=== PATIENT | male | born 1995 | race Caucasian/White ===

== ENCOUNTER 2020-04-02 18:12 | Emergency (ER) | payer SELFPAY ==
[~2020-04-02 18:12] MED LIST: Iopamidol-370 76% 500 ML 1 ML ONE
[2020-04-02] MEDS ORDERED: Morphine 4 MG/ML VIAL ONE (19:12)
[2020-04-02] MEDS ORDERED: Ondansetron PF 4 MG/2 ML Vial ONE (19:12)
--- NOTE | 2020-04-02 19:22 | ULT ---
EXAM: US Testicular W Doppler PROVIDED CLINICAL HISTORY: Questionable bilateral inguinal hernias. History of testicular injury. COMPARISON: Testicular ultrasound obtained from [facility] on 04/02/2020 at 1419 hours. FINDINGS: The testicles demonstrate a normal and symmetric appearance bilaterally without evidence of a testicu lar mass. Doppler evaluation of each testicle with spectral analysis demonstrates arterial flow in each testicle. There is a small subcentimeter anechoic structure seen within the right epididymis likely due to smal l epididymal cyst. The left epididymis demonstrates a normal sonographic appearance. There is heterogeneous material seen adjacent to the right testicle which does demonstrate increased vascular flow on color flow evaluation. This heterogeneous material does not demonstrate peristalsis to suggest a bowel containing hernia. However, this could be related to herniation of mes enteric fat into the right scrotum. Similar finding was present on the prior exam. There is no evidence of a hydrocele. IMPRESSION: 1. Heterogeneous material seen in the right aspect of the scrotum adjacent to the right testicle and epididymis. This does extend into the visualized right inguinal canal. While there is no peristalsis to suggest that this represents a bowel containing hernia, this could be related to herni ation of mesentery and fat into the right aspect of the scrotum. A follow-up CT pelvis is suggested for further evaluation. 2. Normal appearing bilateral testicles with arterial flow demonstrated in each testicle. 3. Small right epididymal cyst.
--- NOTE | 2020-04-02 20:22 | CT ---
CT ABDOMEN AND PELVIS WITH IV CONTRAST 04/02/2020 CLINICAL INFORMATION: Right testicular pain for 5 days which is progressively worsening. COMPARISON: Scrotal ultrasound obtained on today's date. Technique: Multiple contiguous axial CT images are obtained through the abdomen and pelvis with IV contrast. Cor onal reformatted images are provided. FINDINGS: Lower Chest: Minimal linear scarring versus atelectasis is present in the right middle lobe. Lung bas es are otherwise clear. Vessels: Abdominal aorta is normal in caliber. Abdomen: Portal vein:Patent Gallbladder: Within normal limits for CT imaging. Liver: Mildly enlarged in craniocaudal dimensions measuring 18.6 cm. Spleen: within normal limits. Pancreas: within normal limits. Adrenals: within normal limits. Kidneys: within normal limits. Bowel: Normal caliber. Appendix: The appendix is visualized and normal in caliber. Peritoneum: No ascites or free air; no fluid collection. Mesentery and Retroperitoneum: No enlarged mesenteric or retroperitoneal lymph nodes. Abdominal Wall: within normal limits. Pelvis: Reproductive Organs: There is mild asymmetric enlargement of the right seminal vesicle with asymmetri c prominence of the spermatic cord. There is mild thickening along the spermatic cord with enhancement. Enhancement extends into the right inguinal canal and subsequently into the right aspect of the scrotum. Findings may be related to vasitis. Minimal inflammatory stranding is seen adjacent to the more proximal vas deferens and seminal vesicle. No bowel is seen extending into the r ight inguinal canal. Recent testicular ultrasound demonstrated normal-appearing bilateral testicles arterial flow present in each testicle. Pelvis within normal limits. Bladder: within normal limits. Bones: within normal limits. IMPRESSION: Evidence of inflammatory process involving the right seminal vesicle and right spermatic cord with fi ndings of thickening of the spermatic cord extending through the region of the inguinal canal with enhancement and prominent enhancement extends into the scrotum adjacent to the right testicle. Findin gs are likely attributable to vasitis.
[2020-04-02] MEDS ORDERED: Azithromycin 250 MG TAB ONE (20:44)
[2020-04-02] MEDS ORDERED: cefTRIAXone\\ROCEPHIN 1 GM VIAL ONE (20:45)
[2020-04-02] MEDS ORDERED: Lidocaine 1% PF 5 ML VIAL ONE (20:45)
[2020-04-02] MEDS ORDERED: Ketorolac Tromethamine 30 MG/ML VIAL ONE (20:45)
== END 2020-04-02 21:26 | disposition home or self-care (01) ==
LOC: ERS 18:12
DX: N45.1 Epididymitis (principal); F32.9 Major depressive disorder, single episode, unspecified; F17.210 Nicotine dependence, cigarettes, uncomplicated
CPT/HCPCS: 74177; 76870; 93976; 96372; 96374; 96375; J0696; J1885; J2270; J2405; Q9967